=== PATIENT | male | born 1995 | race African-American/Black ===

== ENCOUNTER 2019-12-12 17:49 | Emergency (ER) | payer MEDICAID, OTHER ==
[~2019-12-12] VITALS: Ht 175.3 cm; Wt 82.0 kg
[2019-12-12] MEDS ORDERED: SODIUM CHLORIDE 0.9% 1,000 ML IV ONE (17:52)
[2019-12-12 18:45] LABS: CHLORIDE 108 mEq/L (98-107)
[2019-12-12 18:53] LABS: ETHANOL BLOOD 159 mg/dL
[2019-12-12 18:56] LABS: CREATINE KINASE 387 IU/L (39-308); CREATINE KINASE MB FRACTION 1.2 ng/mL (0.5-3.6)
[2019-12-12] MEDS ORDERED: FOLIC ACID 1 MG, THIAMINE HCL 100 MG, MVI, ADULT NO.1 10 ML in DEXTROSE 5% WATER 1,000 ML IV ONE ×4 (19:45)
[2019-12-12 19:51] LABS: BASOPHILS % 0.3 % (0.0-2.0); EOSINOPHILS % 0.2 % (0.0-5.0); HEMATOCRIT. 51.7 % (42.0-52.0); HEMOGLOBIN. 17.1 g/dL (14.0-18.0); LYMPHOCYTES % 12.2 % (20.0-50.0); MEAN CORPUSCULAR HEMOGLOBIN 31.2 pg (28.0-32.0); MEAN CORPUSCULAR VOLUME 94.1 fL (80.0-94.0); MONOCYTES % 5.3 % (2.0-8.0); PLATELET 291 x1000/uL (130-400); RED BLOOD CELL COUNT 5.49 mill/uL (4.7-6.1); RED CELL DISTRIBUTION WIDTH 13.9 % (11.6-14.6)
[2019-12-12] MEDS ORDERED: SODIUM CHLORIDE 0.9% 1000ML BAG (SEPSIS BOLUS) IV ONE (21:30)
[2019-12-12] MEDS ORDERED: LEVOFLOXACIN 500MG PREMIX 100 ML IV ONE (21:30)
[2019-12-12] MEDS ORDERED: PIPERACILLIN/TAZ 3.375G PREMIX 50 ML IV ONE (21:30)
[2019-12-12 22:04] LABS: CLARITY URINE CLEAR (CLEAR); COLOR URINE YELLOW (YELLOW); KETONES URINE 1+ (NEGATIVE); LEUKOCYTE ESTERASE URINE NEGATIVE (NEGATIVE); NITRITE URINE NEGATIVE (NEGATIVE); OCCULT BLOOD URINE NEGATIVE (NEGATIVE); PROTEIN URINE TRACE (NEGATIVE); SPECIFIC GRAVITY URINE 1.018 (1.005-1.030); UROBILINOGEN URINE 0.2 E.U./dL (0.2-1.0)
[2019-12-12 22:39] LABS: *BENZODIAZEPINES SCREEN URINE NEGATIVE (NEGATIVE); *COCAINE SCREEN URINE NEGATIVE (NEGATIVE); METHADONE URINE SCREEN NEGATIVE (NEGATIVE); OPIATES URINE SCREEN NEGATIVE (NEGATIVE)
[2019-12-12 22:40] VITALS: BP 130/84
[2019-12-12 22:40] LABS: *AMPHETAMINES SCREEN URINE PRESUMTIVE POSITIVE (NEGATIVE); *BARBITURATES SCREEN URINE NEGATIVE (NEGATIVE); CANNABINOID URINE SCREEN PRESUMTIVE POSITIVE (NEGATIVE); PHENCYCLIDINE URINE SCREEN NEGATIVE (NEGATIVE)
== END 2019-12-12 23:00 | disposition left against medical advice (07) ==
LOC: ER 17:49 → EDBEDREQSVC 21:30 → EDBEDREQTM 21:30 → EDBEDREQ 21:30 → CANRESERV 22:03 → ENRESERV 22:03 → ER 23:00 → CANBEDREQ 23:13
DX: T51.0X1A Toxic effect of ethanol, accidental (unintentional), initial encounter (principal); Y93.89 Activity, other specified; E87.2 Acidosis; R73.9 Hyperglycemia, unspecified
CPT/HCPCS: 36415; 70450; 71045; 80053; 80305; 80307; 80320; 80329; 81003; 82550; 82553; 82962; 84484; 85025; 87040; 87086; 93005; 96365; 96366; 99285; J3411; J3490; J7030; J7070; G0480